=== PATIENT | female | born 2000 | race Caucasian/White ===

== ENCOUNTER 2022-03-28 18:59 | Emergency (ER) | payer OTHER ==
[2022-03-28] MEDS ORDERED: Ondansetron PF 4 MG/2 ML Vial ONE (19:08)
[2022-03-28] MEDS ORDERED: Morphine 4 MG/ML VIAL ONE (19:08)
[2022-03-28] MEDS ORDERED: Lidocaine 1% (PF) 30 ML VIAL ONE (19:36)
[2022-03-28] MEDS ORDERED: Bupivacaine PF 0.5% 30 ML VIAL ONE (19:36)
[2022-03-28] MEDS ORDERED: HYDROmorphone 0.5 MG/0.5 ML SYRINGE ONE (20:07)
[2022-03-28] MEDS ORDERED: HYDROcodone/Acetaminophen 5/325 mg Tablet ONE (21:25)
== END 2022-03-28 21:38 | disposition home or self-care (01) ==
LOC: CSHERS 18:59
DX: S52.531A Colles' fracture of right radius, initial encounter for closed fracture (principal); V89.0XXA Person injured in unspecified motor-vehicle accident, nontraffic, initial encounter
CPT/HCPCS: 96374; 96375; G0390; J1170; J2001; J2270; J2405; S0020